=== PATIENT | female | born 1985 | race Caucasian/White ===

== ENCOUNTER 2018-04-01 19:37 | Emergency (ER) | payer SELFPAY ==
[2018-04-01 20:28] VITALS: BP 130/93; PULSE 96; RESP 18; TEMP 98.3; O2SAT 100
[2018-04-01] MEDS ORDERED: ROBA750T PO (20:48)
[2018-04-01] MEDS ORDERED: IBUP1TAB7 PO (20:48)
--- NOTE | 2018-04-01 20:56 | PD ---
HPI Chief Complaint: Oral / Dental Pain or Problem Time Seen by Provider: 20:47 Travel History International Travel<30 days: No Contact w/Intl Traveler<30days: No Traveled to known affect area: No History of Present Illness HPI 32-year-old female presents to the emergency room for evaluation of right-sided jaw pain for the past 2+ weeks. She denies any trauma or injury to the area. States it has gradually gotten worse. Pain is constant. She states it is difficult to localize because it moves around but it mostly stays around her TMJ joint. Occasionally radiates into her neck and down her jaw and into her ear. It is not worsened with palpation. Slightly worsened with range of motion. She took 400-600 mg ibuprofen with moderate relief in symptoms. She denies any fever, chills, nausea, dental drainage, or ear drainage. She does admit to popping her jaw a lot. Denies any chronic medical conditions or daily medications. PFSH Past Medical History GERD: Yes Tetanus Vaccination: Unknown ?: Not LMP: 03/18/18 IUD : 4 Para: 2 Miscarriage: 2 Dilation and Curettage (D&C): Yes Past Surgical History Section: Yes (x2) Cholecystectomy: Yes Social History Alcohol Use: Yes (occaisonally) Tobacco Use: Yes (1PPD) Substance Use: No Allergies-Medications (Allergen,Severity, Reaction): Coded Allergies: acetaminophen (Verified Allergy, Severe, 04/01/18) aspirin (Verified Allergy, Severe, 04/01/18) caffeine (Verified Allergy, Severe, 04/01/18) Review of Systems Except as stated in HPI: all other systems reviewed are Neg Physical Exam Narrative GENERAL: Well-nourished, well-developed female no acute distress. Afebrile. Ambulatory. SKIN: Focused skin assessment warm/dry. HEAD: Normocephalic. EYES: No scleral icterus. No injection or drainage. NECK: Supple, trachea midline. No JVD or lymphadenopathy. DENTAL: No loose or chipped teeth. No malocclusion. No tenderness to palpation of the TMJ joint. No pain with range of motion of the TMJ. EARS: Bilateral pinnae and external canals appear within normal limits. Bilateral tympanic membranes without erythema, dullness or perforation. CARDIOVASCULAR: Regular rate and rhythm without murmurs, gallops, or rubs. RESPIRATORY: Breath sounds equal bilaterally. No accessory muscle use. Data Data Last Documented VS Vital Signs Date Time Temp Pulse Resp B/P (MAP) Pulse Ox O2 Delivery O2 Flow Rate FiO2 04/01/18 20:28 98.3 96 18 130/93 (105) 100 MDM Medical Decision Making Medical Screen Exam Complete: Yes Emergency Medical Condition: Yes Medical Record Reviewed: Yes Differential Diagnosis TMJ disorder, dental infection, otitis media Narrative Course 32-year-old female presents to the emergency room for evaluation of right-sided jaw pain for the past 2+ weeks. She denies any trauma or injury to the area. States she does pop her jaw a lot. Pain is difficult to localize and occasionally occurs in her TMJ joint, jaw, ear, and neck. Occasionally worse with range of motion. Physical exam is reassuring. There is no facial edema. Minimal tenderness to palpation. Right ear is unremarkable. Dentition is unremarkable for infection. History and physical exam are most consistent with TMJ disorder. Patient reassured and discharged with prescriptions ibuprofen and Robaxin. Told to follow-up with a primary care physician or return for worsening symptoms. She understands and agrees to plan. Diagnosis Primary Impression: TMJ (temporomandibular joint disorder) Referrals: Dentist Primary Care Physician Additional Instructions: Rest and drink plenty of fluids. Take Robaxin as directed, as needed for pain. Take ibuprofen with food as directed, as needed for pain. Apply ice to the affected area for 20 minutes at a time, as needed for pain and swelling. Follow-up with a primary care physician. Return to the emergency room for worsening symptoms. Scripts Ibuprofen (Ibuprofen) 800 Mg Tab 800 MG PO Q8H Y for Pain/Inflammation, #15 TAB 0 Refills Prov: Rachel Modi DO 04/01/18 Methocarbamol (Robaxin) 750 Mg Tab 750 MG PO Q8HR for Muscle Spasm, #7 TAB 0 Refills Prov: Rachel Modi DO 04/01/18 Disposition: 01 DISCHARGE HOME Condition: Stable Janey Santiago Apr 01, 2018 20:56
== END 2018-04-01 21:01 | disposition home or self-care (01) ==
LOC: NEPK 19:37
DX: M26.609 Unspecified temporomandibular joint disorder, unspecified side (principal); F17.200 Nicotine dependence, unspecified, uncomplicated
CPT/HCPCS: 99283